=== PATIENT | male | born 1935 | race Caucasian/White ===

== ENCOUNTER 2016-09-27 18:41 | Observation (INO) | payer OTHER ==
[2016-09-27] MEDS ORDERED: ASPIRIN 81 MG CHEWABLE TAB PO ONE (18:48)
[2016-09-27] MEDS ORDERED: NS 500 ML IV ONE (18:48)
--- NOTE | 2016-09-27 18:48 | EDPHY ---
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 ([place], [place]) from [facility]. He arrived to [place] 2 days ago his son lives here. Since arriving he has been excessively fatigued, episodes of shortness of breath and left-sided intermittent chest discomfort. Dull ache. Denies numbness or tingling, focal weakness, neck pain , jaw pain, nausea, diaphoresis. He does tell me over the past 48 hours since arriving to [place] from [place] he has felt fatigued, sleeping excessively, left- sided chest discomfort describes a dull ache. Nonradiating. Currently upon arrival to the emergency room he denies any active chest pain. Denies shortness of breath. Patient denies history of PE DVT, leg swelling, calf pain. Past Medical History: Hypertension, TIA, mi in 2013, 5 cardiac stents, hypertension Past Surgical History: PTCA Social History: Denies daily use of drugs alcohol tobacco products, lives in [place] , at bedside, son here [place] Family History: Noncontributory ROS REVIEW OF SYSTEMS: A comprehensive 10 point review of systems is otherwise negative aside from elements mentioned in the history of present illness. Exam Constitutional appears well nontoxic, triage nursing summary reviewed, vital signs reviewed, awake/alert. Eyes normal conjunctivae and sclera, EOMI, PERRLA. HENT normal inspection, atraumatic, moist mucus membranes, no epistaxis, neck supple/ no meningismus, no raccoon eyes. Respiratory clear to auscultation bilaterally, normal breath sounds, no respiratory distress, no wheezing. Cardiovascular rate normal, regular rhythm, no murmur, no edema, distal pulses normal. Gastrointestinal soft, non-tender, no rebound, no guarding, normal bowel sounds, no distension, no pulsatile mass. Genitourinary no CVA tenderness. Musculoskeletal no midline vertebral tenderness, full range of motion, no calf swelling, no tenderness of extremities, no meningismus, good pulses, neurovascularly intact. Skin pink, warm, & dry, no rash, skin atraumatic. Neurologic awake, alert and oriented x 3, AAOx3, moves all 4 extremities equally, motor intact, sensory intact, CN II-XII intact, normal cerebellar, normal vision, normal speech. Psychiatric normal mood/affect. Heme/Lymph/Immune no lymphadenopathy. 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 Full-dose aspirin. Re-evaluation: EKG interpretation by me on record in [employer] system. Impression time of EKG 18 50, this is sinus rhythm rate of 67, there is T-wave abnormality noted to be in V4 V5 and V6 with inverted T-waves. Also aVL. Otherwise no acute ischemic changes specifically no ST elevation, ST depression. ED x-ray chest two view: Pulmonary nodule present right lower lobe. Cardiac silhouette normal in size. Otherwise lung kinsey clear. 1946: This patient 81 use all with intermittent left-sided chest pressure dull ache, with underlying coronary artery disease with stents, currently not having chest pain he does have T-wave abnormalities on his EKG. Patient need to be admitted to the hospitalist service for chest pain evaluation further rule out. His EKG shows no ST elevation or ST depression. Does have T-wave abnormalities. D-dimer negative. Troponin negative. Chest wishes pulmonary nodule but no evidence of overt failure. Plan for this patient admission the hospital service for further cardiac evaluation. Patient agrees. Spoke with Dr. Chris who agrees to admit. Source: Patient - Personal History Current Tetanus/Diphtheria Vaccine: Yes - Medical/Surgical History Hx Asthma: No Hx Chronic Respiratory Disease: No Hx Diabetes: No Hx Cardiac Disease: Yes Hx Renal Disease: No Hx Cirrhosis: No Hx Alcoholism: No Hx HIV/AIDS: No Hx Splenectomy or Spleen Trauma: No Other PMH: CARDIAC STENTS - Social History Smoking Status: Never smoked Constitutional: Initial Vital Signs Temperature (C) 36.6 C 09/27/16 18:43 Heart Rate 75 09/27/16 18:43 Respiratory Rate 18 09/27/16 18:43 Blood Pressure 171/86 H 09/27/16 18:43 O2 Sat (%) 93 09/27/16 18:43 O2 Delivery Mode Room Air O2 (L/minute) 2 Allergies/Adverse Reactions: BETA BLOCKERS Allergy (Uncoded 09/27/16 18:42) Home Medications: Medication Instructions Recorded Aspirin 81mg (*) 09/27/16 Atorvastatin Calcium 09/27/16 Celexa 09/27/16 Losartan Potassium 09/27/16 Plavix 09/27/16 Medical Decision Making - Data Points Laboratory Results: Laboratory Results 09/27/16 18:50 09/27/16 18:50 09/27/16 09/27/16 09/27/16 18:50 18:50 18:50 WBC 6.93 10^3/uL 10^3/uL (3.80-9.50) RBC 4.62 10^6/uL 10^6/uL (4.40-6.38) Hgb 14.7 g/dL g/dL (13.7-17.5) Hct 44.1 % % (40.0-51.0) MCV 95.5 fL fL (81.5-99.8) MCH 31.8 pg pg (27.9-34.1) MCHC 33.3 g/dL g/dL (32.4-36.7) RDW 12.7 % % (11.5-15.2) Plt Count 167 10^3/uL 10^3/uL (150-400) MPV 9.7 fL fL (8.7-11.7) Neut % (Auto) 69.8 % % (39.3-74.2) Lymph % (Auto) 16.5 % % (15.0-45.0) Angelina % (Auto) 10.4 % % (4.5-13.0) Eos % (Auto) 2.0 % % (0.6-7.6) Baso % (Auto) 0.6 % % (0.3-1.7) Nucleat RBC Rel Count 0.0 % % (0.0-0.2) Absolute Neuts (auto) 4.84 10^3/uL 10^3/uL (1.70-6.50) Absolute Lymphs (auto) 1.14 10^3/uL 10^3/uL (1.00-3.00) Absolute Monos (auto) 0.72 10^3/uL 10^3/uL (0.30-0.80) Absolute Eos (auto) 0.14 10^3/uL 10^3/uL (0.03-0.40) Absolute Basos (auto) 0.04 10^3/uL 10^3/uL (0.02-0.10) Absolute Nucleated RBC 0.00 10^3/uL 10^3/uL (0-0.01) Immature Gran % 0.7 % % (0.0-1.1) Immature Gran # 0.05 10^3/uL 10^3/uL (0.00-0.10) PT 13.1 SEC SEC (12.0-15.0) INR 1.00 (0.83-1.16) APTT 26.0 SEC SEC (23.0-38.0) D-Dimer < 0.27 ug/mLFEU ug/mLFEU (0.00-0.50) Sodium 138 mEq/L mEq/L (134-144) Potassium 4.4 mEq/L mEq/L (3.5-5.2) Chloride 104 mEq/L mEq/L (97-110) Carbon Dioxide 24 mEq/l mEq/l (22-31) Anion Gap 10 mEq/L mEq/L (8-16) BUN 20 mg/dL mg/dL (7-23) Creatinine 1.0 mg/dL mg/dL (0.7-1.3) Estimated GFR > 60 Glucose 83 mg/dL mg/dL (70-100) Calcium 9.8 mg/dL mg/dL (8.5-10.4) Magnesium 2.1 mg/dL mg/dL (1.6-2.3) Total Bilirubin 0.6 mg/dL mg/dL (0.1-1.4) Conjugated Bilirubin 0.0 mg/dL mg/dL (0.0-0.5) Unconjugated Bilirubin 0.6 mg/dL mg/dL (0.0-1.1) AST 31 IU/L IU/L (17-59) ALT 39 IU/L IU/L (21-72) Alkaline Phosphatase 70 IU/L IU/L (38-126) Creatine Kinase 84 IU/L IU/L (0-224) CK-MB (CK-2) Fraction 1.57 ng/mL ng/mL (0-3.19) Troponin I < 0.012 ng/mL ng/mL (0-0.034) NT-Pro-B Natriuret Pep 123 pg/mL pg/mL (0-450) Total Protein 6.4 g/dL g/dL (6.3-8.2) Albumin 3.9 g/dL g/dL (3.5-5.0) Lipase 164.0 IU/L IU/L (23-300) Medications Given: Discontinued Medications Aspirin (Aspirin) 324 mg PO EDNOW ONE Stop: 09/27/16 18:49 Last Admin: 09/27/16 19:01 Dose: 324 mg Sodium Chloride (Ns) 500 mls @ 1,000 mls/hr IV ONCE ONE PRN Reason: Protocol Stop: 09/27/16 19:17 Last Admin: 09/27/16 19:01 Dose: 500 mls Departure - Departure Disposition: [facility] Inpatient Acute Clinical Impression: Fatigue Qualifiers: Fatigue type: unspecified Qualified Code(s): R53.83 - Other fatigue Chest pain Qualifiers: Chest pain type: unspecified Qualified Code(s): R07.9 - Chest pain, unspecified Condition: Fair
--- NOTE | 2016-09-27 18:52 | CPEKG ---
Heart Rate: 67 RR Interval: 896 P-R Interval: 148 QRSD Interval: 94 QT Interval: 432 QTC Interval: 456 P Leonore: 79 QRS Leonore: 57 T Wave Leonore: 68 EKG Severity - BORDERLINE ECG - EKG Impression: SINUS RHYTHM EKG Impression: BORDERLINE T WAVE ABNORMALITIES Electronically Signed By: Holden Crawford 27-Sep-2016 22:55:14
[2016-09-27 18:59] LABS: % IMMATURE GRANULYOCYTES 0.7 % (0.0-1.1); ABSOLUTE IMMATURE GRANULOCYTES 0.05 10^3/uL (0.00-0.10); ADD DIFF? NO; ADD MORPH? NO; ADD SCAN? NO; ATYPICAL LYMPHOCYTE FLAG 0 (0-99); FRAGMENT RBC FLAG 0 (0-99); HEMATOCRIT 44.1 % (40.0-51.0); HEMOGLOBIN 14.7 g/dL (13.7-17.5); LEFT SHIFT FLG 0 (0-99); LIPEMIA HEMOLYSIS FLAG 80 (0-99); MEAN CELL HEMOGLOBIN 31.8 pg (27.9-34.1); MEAN CELL HEMOGLOBIN CONCENTR. 33.3 g/dL (32.4-36.7); MEAN CELL VOLUME 95.5 fL (81.5-99.8); MEAN PLATELET VOLUME 9.7 fL (8.7-11.7); PLATELET CLUMPS FLAG 20 (0-99); PLATELET COUNT 167 10^3/uL (150-400); RED BLOOD CELL COUNT 4.62 10^6/uL (4.40-6.38); RED CELL DISTRIBUTION WIDTH 12.7 % (11.5-15.2)
[2016-09-27 19:08] LABS: PROTIME(PATIENT) 13.1 SEC (12.0-15.0)
[2016-09-27 19:17] LABS: ALANINE AMINOTRANSFERASE 39 IU/L (21-72); ALBUMIN 3.9 g/dL (3.5-5.0); ALKALINE PHOSPHATASE 70 IU/L (38-126); ANION GAP 10 mEq/L (8-16); ASPARTATE AMINOTRANSFERASE 31 IU/L (17-59); BILIRUBIN,TOTAL 0.6 mg/dL (0.1-1.4); BILIRUBIN-UNCONJUGATED 0.6 mg/dL (0.0-1.1); CALCIUM 9.8 mg/dL (8.5-10.4); CARBON DIOXIDE 24 mEq/l (22-31); CHLORIDE 104 mEq/L (97-110); GLOMERULAR FILTRATION RATE > 60; GLUCOSE 83 mg/dL (70-100); MAGNESIUM 2.1 mg/dL (1.6-2.3); POTASSIUM 4.4 mEq/L (3.5-5.2); SODIUM 138 mEq/L (134-144); TOTAL PROTEIN 6.4 g/dL (6.3-8.2)
[2016-09-27 19:29] LABS: CREATINE KINASE-MB FRACTION 1.57 ng/mL (0-3.19); TROPONIN I < 0.012 ng/mL (0-0.034)
[2016-09-27] MEDS ORDERED: ACETAMINOPHEN 325 MG TAB PO PRN (20:51)
[2016-09-27] MEDS ORDERED: ONDANSETRON DISINTEGRATING 4 MG TAB PO PRN (20:51)
[2016-09-27] MEDS ORDERED: ONDANSETRON 4 MG/2 ML VIAL IVP PRN (20:51)
--- NOTE | 2016-09-28 03:51 | GHP ---
[f rep st] HISTORY AND PHYSICAL DATE OF ADMISSION: 09/27/2016 The patient is a pleasant 81-year-old gentleman with a history of coronary disease and neck surgery who presents with an episode of chest pain. It has been on and off for today. He lives in [facility], is visiting his son here, they are staying in . He typically gets a reaction to altitude including fatigue and lack of energy, and he has had that here. He has that also when he goes to [place], [place], which is 5000 feet. He has not had cough or shortness of breath. He may have done an exercise that could have strained his chest, but that was more up near his [place], and this is more central. He has not had excessive alcohol or dietary indiscretion. No feve r, chills, cough, sputum. No heart failure symptoms such as PND, orthopnea, or lower extremity carter a. There is no family history of VTE. He does not take a beta ebony. REVIEW OF SYSTEMS: Complete 10-point review of systems conducted negative except as noted in the HP I. PAST MEDICAL HISTORY: 1. Coronary disease. 2. Neck surgery. 3. Hypertension. ALLERGIES: Beta blockers, to which he gets bradycardia. HOME MEDICINES: Aspirin, atorvastatin, Celexa, losartan, Plavix. SOCIAL HISTORY: Retired [employer] professor. Lives in [place]. . FAMILY HISTORY: . Son is healthy at the bedside. PHYSICAL EXAM: VITAL SIGNS: Temp 36.6, blood pressure 171/86, pulse 75, breathing 18 times a minut e, 93% on room air. GENERAL: No acute distress. HEENT: Sclerae anicteric. Oropharynx clear. Mu cous membranes are moist. NECK: Supple without lymphadenopathy or JVD. LUNGS: Clear to auscultat ion bilaterally. HEART: S1, S2 without murmurs. ABDOMEN: Soft, nontender, nondistended. LOWER E XTREMITIES: No edema. Calves are nontender. SKIN: Without rash. NEUROLOGIC: Nonfocal. LABORATORY DATA: Sodium 138, potassium 4.4, chloride 104, bicarb 24, BUN 20, creatinine 1.0. Bilir ubin is normal. Troponin less than 0.012. BNP is 123. Lipase 164. D-dimer less than 0.27. CBC n ormal. Chest x-ray, interpreted by me, shows a 17 mm right lower lobe pulmonary nodule. Mild cardi omegaly without azucena heart failure. EKG, interpreted by me, shows sinus at 67 with normal axis and intervals. No ST or T-wave changes. ASSESSMENT/PLAN: An 81-year-old gentleman with coronary disease here with chest pain. 1. Chest pain. This is different from his anginal equivalent, as he has described. He has a negat tabitha D-dimer, and he is bradycardic making pulmonary embolism very unlikely. It is not clear this re presents a gastrointestinal process, and will give him a trial of a GI cocktail. Will follow him on telemetry and cycle his troponins. A stress test can be forgone and can be pursued as an outpatien t. 2. Pulmonary nodule. This requires outpatient followup. He has been a smoker in the past, but has not recently. 3. Prophylaxis. Pharmacologic prophylaxis indicated if in the hospital longer than 24 hours. Can hold for now. 4. Disposition. Observation status. /[id number]/MODL
[2016-09-28] MEDS ORDERED: OMEGA-3 FATTY ACIDS 1,000 MG CAP PO SCH (09:00)
[2016-09-28] MEDS ORDERED: LOSARTAN POTASSIUM 25 MG TAB PO SCH (09:00)
[2016-09-28] MEDS ORDERED: MULTIVITAMINS 1 EACH TAB PO SCH (09:00)
[2016-09-28] MEDS ORDERED: CLOPIDOGREL BISULFATE 75 MG TAB PO SCH (09:00)
[2016-09-28] MEDS ORDERED: ASPIRIN EC 81 MG TAB PO SCH (09:00)
[2016-09-28 11:27] VITALS: PULSE 63; RESP 15; TEMP 97.9; O2SAT 97
--- NOTE | 2016-09-28 11:50 | PDDCSUM ---
Discharge Summary Discharge Summary: Dates of service 09/27-09/28/16 Discharge dx: # chest pain # CAD # htn # pulmonary nodule Consultations/procedures: none Hospital course by problem: # chest pain: atypical and not c/w his prior anginal sxs. Neg trops x 3, no clearly ischemic changes on ecg. Discussed at length with patient and given that he lives out of [facility] and is cared for by [facility], it would be his preference to forego further w/u here and would rather have further testing through [facility]. Discussed that we would like him to have a stress test or cardiology consultation within the next week--he and daughter arranging that prior to dc. No current chest pain. # CAD: as above, continued on op medications, f/u with cardiology for further ischemic testing within the next week # pulmonary nodule: non specific and with no olds to compare, patient to f/u with PCP and compare this finding to old imaging or repeat chest CT in 3 months # htn: given age, relatively well controlled, continue op meds Discharge to home f/u with PCP and cardiology as above, recommending stress test within the next week > 35 minutes spent in dc, more than half in counseling of patient and his family regarding f/u care plans
[2016-09-28 12:07] VITALS: BP 156/80
[2016-09-28] MEDS ORDERED: FERROUS SULFATE 325 MG TAB PO SCH (21:00)
[2016-09-28] MEDS ORDERED: CITALOPRAM 20 MG TAB PO SCH (21:00)
[2016-09-28] MEDS ORDERED: PRESERVISION AREDS2 FORMULA EYE VIT 1 EACH PO SCH (21:00)
[2016-09-28] MEDS ORDERED: ATORVASTATIN CALCIUM 40 MG TAB PO SCH (21:00)
== END 2016-09-28 12:35 | disposition home or self-care (01) ==
LOC: F2W 20:48
PROVIDERS: ADMIT Internal Medicine; ATTEND Internal Medicine
DX: R07.89 Other chest pain (principal); R53.83 Other fatigue; I25.10 Atherosclerotic heart disease of native coronary artery without angina pectoris; I10 Essential (primary) hypertension; Z95.5 Presence of coronary angioplasty implant and graft; I25.2 Old myocardial infarction; Z86.73 Personal history of transient ischemic attack (TIA), and cerebral infarction without residual deficits
CPT/HCPCS: 71020; 93005; G0378